=== PATIENT | female | born 1950 | race Caucasian/White ===

== ENCOUNTER 2017-05-05 11:29 | Day surgery (SDC) | payer MEDICARE, OTHER ==
[~2017-05-05] VITALS: Ht 160 cm; Wt 93.2 kg
--- NOTE | ~2017-05-05 | OP ---
PATIENT NAME: JONO YANCEY MEDICAL RECORD: [id number] :50 LOCATION:[facility] ADMISSION DATE: SURGEON: SHELBY ERWIN DO DATE OF OPERATION: 05/05/2017 PROCEDURE: Colonoscopy. INDICATIONS FOR PROCEDURE: Screening colonoscopy, last colonoscopy is unknown. SCOPE: Olympus video pediatric colonoscope. MEDICATIONS: Propofol 200 mg IV per anesthesia. WITHDRAWAL TIME: 7 minutes. ESTIMATED BLOOD LOSS: None. COMPLICATIONS: None. FINDINGS: Informed consent was given. The patient was made comfortable with the above medication. After reaching an adequate level of sedation by slow IV push, the patient was placed on her left side. A digital rectal examination was performed and was normal. The endoscope was then advanced under direct visualization through the rectum to the terminal ileum. The scope was slowly withdrawn and mucosa was carefully examined. There were no polyps visualized on this examination. There was mild diverticulosis involving descending and sigmoid colon. There was no evidence of diverticulitis. Retroflexion was performed in the rectum with visualization of small nonbleeding internal hemorrhoids and a single hypertrophied anal papilla. The scope was withdrawn from the patient. The patient tolerated the procedure well and there were no complications. IMPRESSION: 1. Mild diverticulosis of the left side of the colon. 2. Small nonbleeding internal hemorrhoids. PLAN AND RECOMMENDATIONS: 1. Discharge home when recovery parameters are met. 2. High fiber diet. 3. Continue current medications. 4. Recall colonoscopy in 7 years for screening for colorectal cancer. 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
[~2017-05-05 11:29] MED LIST: CINNAMON500 MG PO; COUMADIN5 MG PO; FISH OIL 1,0001 CA1 PO; MULTI-DAY VITAM1 TAB PO; PACERONE400 MG PO; XARELTO20 MG PO
[2017-05-05 12:11] VITALS: BP 121/76; Ht 160 cm; Wt 93.2 kg
[2017-05-05 12:52] LABS: HEMATOCRIT 45.6 % (36.0-48.0); HEMOGLOBIN 15.6 g/dL (12-16); MCHC 34.2 g/dL (31.0-37.0); MCV 90.5 fL (80.0-100.0); MEAN PLATELET VOLUME 10.3 fL (7.4-10.4); RBC 5.04 10x6/uL (4.00-5.40); WBC 7.7 10x3/uL (4.8-10.8)
[2017-05-05 13:03] LABS: APTT 26.7 SECONDS (22.8-39.4)
[2017-05-05 13:04] LABS: INR 1.03 (0.85-1.17); PROTIME 13.4 SECONDS (11.6-15.0)
[2017-05-05 13:13] LABS: ANION GAP 13.9 mmol/L (8-16); CALCIUM 9.1 mg/dL (8.5-10.1); CARBON DIOXIDE 27.3 mmol/L (21.0-32.0); CREATININE - SERUM 0.9 mg/dL (0.6-1.3); POTASSIUM - SERUM 4.2 mmol/L (3.5-5.1)
--- NOTE | 2017-05-05 14:41 | NUR ---
1435 DISCHARGE INSTRUCTIONS COMPLETE. PT HAS NO QUESTIONS OR CONCERNS AT THIS TIME. NO PRESCRIPTIONS GIVEN. ESCORTED OUT BY IRAIDA GOULD.
== END 2017-05-05 14:35 | disposition home or self-care (01) ==
LOC: D.OPS 11:29
PROVIDERS: Anesthesiology
DX: Z12.11 Encounter for screening for malignant neoplasm of colon (principal); I48.91 Unspecified atrial fibrillation; Z01.812 Encounter for preprocedural laboratory examination

== ENCOUNTER → 2017-05-31 16:46 | Outpatient (CLI) | payer MEDICARE, OTHER ==
[2017-05-05 12:11] VITALS: BMI 36.3
== END | disposition home or self-care (01) ==
LOC: D.MAMMO 14:30
DX: Z12.31 Encounter for screening mammogram for malignant neoplasm of breast (principal)

== ENCOUNTER → 2017-07-19 16:22 | Outpatient (CLI) | payer MEDICARE, OTHER ==
[2017-05-05 12:11] VITALS: BMI 36.3
== END | disposition home or self-care (01) ==
LOC: D.MAMMO 14:00
DX: R92.8 Other abnormal and inconclusive findings on diagnostic imaging of breast (principal)

== ENCOUNTER → 2018-02-03 16:48 | Outpatient (CLI) | payer MEDICARE, OTHER ==
[2017-05-05 12:11] VITALS: BMI 36.3
== END | disposition home or self-care (01) ==
LOC: D.MAMMO 01-17 09:00
DX: R92.8 Other abnormal and inconclusive findings on diagnostic imaging of breast (principal)

== ENCOUNTER 2018-06-24 19:00 | Outpatient (CLI) | payer MEDICARE, OTHER ==
[2017-05-05 12:11] VITALS: BMI 36.3
== END 2018-06-24 23:59 | disposition home or self-care (01) ==
LOC: D.MAMMO 19:00
DX: Z12.31 Encounter for screening mammogram for malignant neoplasm of breast (principal)

== ENCOUNTER 2020-04-09 13:15 | Outpatient (CLI) | payer MEDICARE, OTHER ==
[2017-05-05 12:11] VITALS: BMI 36.3
== END 2020-04-09 14:15 | disposition home or self-care (01) ==
LOC: D.MAMMO 13:15
PROVIDERS: ATTEND Nurse Practitioner Family
DX: Z12.31 Encounter for screening mammogram for malignant neoplasm of breast (principal)

== ENCOUNTER 2020-05-03 13:30 | Outpatient (CLI) | payer MEDICARE, OTHER ==
[2017-05-05 12:11] VITALS: BMI 36.3
== END 2020-05-03 13:31 | disposition home or self-care (01) ==
LOC: D.MAMMO 13:30
PROVIDERS: ATTEND Nurse Practitioner Family
DX: R92.8 Other abnormal and inconclusive findings on diagnostic imaging of breast (principal)

== ENCOUNTER → 2020-05-31 19:43 | Outpatient (CLI) | payer MEDICARE, OTHER ==
[2017-05-05 12:11] VITALS: BMI 36.3
== END | disposition home or self-care (01) ==
LOC: D.MAMMO 05-24 08:00
PROVIDERS: ATTEND Nurse Practitioner Family
DX: N63.10 Unspecified lump in the right breast, unspecified quadrant (principal)